=== PATIENT | male | born 1990 | race African-American/Black ===

== ENCOUNTER 2019-06-21 22:33 | Emergency (ER) | payer SELFPAY ==
[~2019-06-21 22:33] MED LIST: Iopamidol 370 76% 100 ML VIAL ONE; Sodium Chloride 0.9% 1,000 ML BAG ONE
[2019-06-21 23:00] LABS: #Basophils 0.1 thou/uL (0.0-0.2); #Eosinphils 0.4 thou/uL (0.0-0.7); #Lymphocytes 2.8 thou/uL (1.20-3.40); #Monocytes 0.8 thou/uL (0.11-0.59); #Neutrophils 8.4 thou/uL (1.40-6.50); %Eosinophils 2.9 % (0.0-10.0); %Lymphocytes 22.6 % (21.0-51.0); %Neutrophils 67.5 % (42.0-75.0); Mean Corpuscular HGB CONC 34.4 g/dL (32.0-36.0); Mean Corpuscular Hemoglobin 28.1 pg (27.0-31.0); Mean Corpuscular Volume 81.5 fL (78.0-98.0); Mean Platelet Volume 6.5 fL (7.4-10.4); Platelet Count 231 thou/uL (130-400); RBC Distribution Width 12.4 % (11.5-14.5); Red Blood Cell (RBC) Count 4.97 mill/uL (4.70-6.10); White Blood Cell (WBC) Count 12.5 thou/uL (4.8-10.8)
[2019-06-21 23:17] LABS: ALT (SGPT) 23 U/L (8-55); AST (SGOT) 24 U/L (5-34); Albumin 4.7 g/dL (3.5-5.0); Alcohol 209 mg/dL (Less than 10); Alkaline Phosphatase 114 U/L (40-110); Anion Gap 20 mmol/L (10-20); BUN (Urea Nitrogen) 10 mg/dL (8.9-20.6); Bilirubin, Total 0.4 mg/dL (0.2-1.2); Calc. Creatinine Clearance 0 mL/min (70-130); Calcium 9.5 mg/dL (7.8-10.44); Carbon Dioxide 21 mmol/L (22-29); Chloride 108 mmol/L (98-107); Estimated GFR-MDRD 85; Globulin 3.6 g/dL (2.4-3.5); Glucose 111 mg/dL (70-105); Potassium 3.5 mmol/L (3.5-5.1); Protein, Total 8.3 g/dL (6.0-8.3); Sodium 145 mmol/L (136-145)
--- NOTE | 2019-06-21 23:27 | CT ---
CT Brain WO Con HISTORY: Head injury COMPARISON: None. FINDINGS: The ventricular and cisternal system is within normal limits. There are no signs of intrace rebral hemorrhage or extra-axial fluid collections. The mastoid air cells are clear. Mucosal changes seen within the bilateral ethmoid air cells and retention cyst within the maxillary sinuses. IMPRESSION: No acute intracranial abnormalities.
--- NOTE | 2019-06-21 23:30 | CT ---
CT Cervical Spine WO Con HISTORY: Neck injury. COMPARISON: None. FINDINGS: The vertebral bodies are normal in height there is slight reversal to the normal cervical c urve. The facets are in normal alignment and disc spaces are well preserved. There is no signs of canal or foraminal narrowing although overall the canal is borderline congenital ly narrowed. There is no CT evidence for fracture. IMPRESSION: 1. No CT evidence of fracture the cervical spine. 2. Mild congenital narrowing of the canal.
[2019-06-21] MEDS ORDERED: Adacel (T-DAP) 0.5 ML SYRINGE ONE (23:36)
[2019-06-21 23:44] LABS: Acetaminophen Less than 6.0 mcg/mL (10.0-30.0); Alcohol 207 mg/dL (Less than 10); Salicylate Less than 8.0 mg/dL (15.0-30.0)
--- NOTE | 2019-06-21 23:46 | CT ---
CT Chest Abd Pelvis W Con HISTORY: Trauma with diffuse pain. COMPARISON: None. FINDINGS: The lungs are clear of any infiltrates. No signs of pleural effusion or pneumothorax. There are no rib fractures identified. The thoracic aorta is normal in caliber. There is some residual thymic tissue present. No mediastinal hematoma. CT of abdomen performed with contrast: Scan artifact related to arm position is present. The liver, s pleen, pancreas and gallbladder regions appear unremarkable. Right and left adrenal glands and right and left kidneys are normal no free fluid or signs for bowel wall injury CT of pelvis performed with contrast: No free fluid, adenopathy or mass. No evidence of fracture of t he bony pelvic ring. CT of thoracic and lumbar spine: There is no evidence of acute injury. IMPRESSION: No acute findings of the chest, abdomen or pelvis.
== END 2019-06-21 23:50 | disposition left against medical advice (07) ==
LOC: MADERS 22:33
DX: S61.412A Laceration without foreign body of left hand, initial encounter (principal); S61.411A Laceration without foreign body of right hand, initial encounter; S10.93XA Contusion of unspecified part of neck, initial encounter; F10.129 Alcohol abuse with intoxication, unspecified; I10 Essential (primary) hypertension; V49.9XXA Car occupant (driver) (passenger) injured in unspecified traffic accident, initial encounter
CPT/HCPCS: 70450; 71260; 72125; 74177; 80053; 80307; 85025; 90471; 90715; G0390; J7050; Q9967